=== PATIENT | male | born 1970 | race African-American/Black ===

== ENCOUNTER 2024-04-12 09:21 | Outpatient (CLI) | payer BC ==
[2024-04-12] MEDS ORDERED: Magnevist 469MG/ML 20 ML VIAL ONE (10:41)
== END 2024-04-12 09:22 | disposition home or self-care (01) ==
LOC: CSHMRI 09:21
PROVIDERS: ATTEND Family Medicine
DX: R16.0 Hepatomegaly, not elsewhere classified (principal); D18.03 Hemangioma of intra-abdominal structures
CPT/HCPCS: 74183